=== PATIENT | male | born 1985 | race Two or more races ===

== ENCOUNTER 2024-01-16 01:50 | Emergency (ER) | payer MEDICAID ==
[~2024-01-16] VITALS: Ht 167.6 cm; Wt 68.0 kg
[2024-01-16 04:27] VITALS: BP 135/79; TEMP 98; O2SAT 98
== END 2024-01-16 04:27 | disposition home or self-care (01) ==
LOC: ER 01:57
DX: F19.129 Other psychoactive substance abuse with intoxication, unspecified (principal); F10.129 Alcohol abuse with intoxication, unspecified; Y90.9 Presence of alcohol in blood, level not specified
CPT/HCPCS: 82962-TC